=== PATIENT | male | born 1970 | race Caucasian/White ===

== ENCOUNTER 2024-11-08 06:01 | Day surgery (SDC) | payer OTHER ==
[~2024-11-08] VITALS: Ht 152.4 cm; Wt 60.0 kg
[~2024-11-08 06:01] MED LIST: GEMF-77 PO; METO25 PO
[2024-11-08] MEDS ORDERED: BENZOCAINE 20% 50 MCG/SPRAY 57 GM TP ONE (06:02)
[2024-11-08] MEDS ORDERED: LIDOCAINE 4% 50 ML SOLUTION TP ONE (06:02)
[2024-11-08] MEDS ORDERED: LIDOCAINE 2% 11 ML JELLY TP ONE (06:02)
[2024-11-08] MEDS ORDERED: SODIUM CHLORIDE 0.9% 1,000 ML ONE (07:13)
[2024-11-08] MEDS ORDERED: AMLO2.5T96 PO (07:58)
[2024-11-08] MEDS ORDERED: PRED-729 PO (07:58)
[2024-11-08] MEDS ORDERED: DOXY50CA12 PO (07:58)
[2024-11-08] MEDS ORDERED: LOSA-381 PO (07:58)
[2024-11-08] MEDS ORDERED: ATOR40TA28 PO (07:58)
[2024-11-08] MEDS ORDERED: FAMO20 PO (08:04)
[2024-11-08] MEDS ORDERED: METF-1211 PO (08:04)
[2024-11-08] MEDS ORDERED: MONT-35 PO (08:04)
[2024-11-08] MEDS ORDERED: METO-325 PO (08:04)
[2024-11-08] MEDS ORDERED: FLUT12AE3 IH (08:04)
[2024-11-08] MEDS ORDERED: FLUT16SP NASAL (08:04)
[2024-11-08] MEDS ORDERED: ACET-3385 PO (08:04)
[2024-11-08] MEDS ORDERED: ALBU18HF12 IH (08:04)
[2024-11-08] MEDS ORDERED: FentaNYL CITRATE PF 100 MCG/2 ML VIAL ONE (08:27)
[2024-11-08] MEDS ORDERED: MIDAZOLAM HCL 2 MG/2 ML VIAL ONE (08:27)
[2024-11-08] MEDS ORDERED: FLUMAZENIL 0.1 MG/ML 5 ML VIAL IVP ONE (08:27)
[2024-11-08] MEDS ORDERED: NALOXONE HCL 0.4 MG/ML VIAL ONE (08:28)
[2024-11-08] MEDS ORDERED: ATROPINE SULFATE 0.1 MG/ML 10 ML SYRINGE IVP ONE (08:28)
[2024-11-08] MEDS ORDERED: EPINEPHrine 1:10,000 [1 MG/10 ML] SYRINGE ONE (08:28)
[2024-11-08] MEDS ORDERED: SODIUM TETRADECYL SULFATE 3% 60 MG/2 ML VIAL IVP ONE (08:28)
[2024-11-08] MEDS ORDERED: DiphenhydrAMINE HCL 50 MG/ML VIAL ONE (08:28)
[2024-11-08] MEDS: SODIUM CHLORIDE 0.9% 1,000 ML IV ONE (08:46)
[2024-11-08 09:20] VITALS: PULSE 96; RESP 18; O2SAT 99
[2024-11-08 09:36] LABS: GLUCOMETER DEV NAME(LOC) SDS.; GLUCOSE,POINT OF CARE 111 MG/DL (70-110)
[2024-11-08] MEDS ORDERED: MethylPREDNISolone SOD SUCC 125 MG/2 ML VIAL ONE (09:36)
[2024-11-08] MEDS: MethylPREDNISolone SOD SUCC 125 MG/2 ML VIAL IVP ONE (10:11)
== END 2024-11-08 14:00 | disposition home or self-care (01) ==
LOC: SURGERY 06:01
PROVIDERS: ATTEND Internal Medicine Critical Care Medicine
DX: R05.3 Chronic cough (principal); B37.0 Candidal stomatitis; J38.4 Edema of larynx; R04.2 Hemoptysis; E11.9 Type 2 diabetes mellitus without complications; Z79.899 Other long term (current) drug therapy; Z88.0 Allergy status to penicillin; Z88.8 Allergy status to other drugs, medicaments and biological substances
CPT/HCPCS: 31623; 82962; 87206; 87101; 87220; 87070; 88108; 31624; 71045; 87015; J3010; J2250; J2919; J7030; J0171; J0461; J1200; J2310; J3490; Z7610